=== PATIENT | male | born 1965 | race Caucasian/White ===

== ENCOUNTER → 2018-10-26 | Outpatient (CLI) | payer OTHER ==
[~2018-10-26] MED LIST: ASPI-496 PO; CHOL10002 PO; FLAX1CAP PO; IBUP-1484 PO; LISI2.5T PO; MULT-717 PO; OMEG1CAP23 PO
== END | disposition home or self-care (01) ==
LOC: RAD 15:55
PROVIDERS: ATTEND Physician Assistant Surgical
DX: M79.672 Pain in left foot (principal); R60.0 Localized edema